=== PATIENT | female | born 1960 ===

== ENCOUNTER 2017-02-06 18:20 | Emergency (ER) | payer OTHER ==
[2017-02-06 18:25] VITALS: BMI 26.9
[2017-02-06] MEDS ORDERED: Tetanus/Diphtheria Toxoids 0.5 ml Syringe IM ONE ×2 (19:08→19:19)
[2017-02-06] MEDS ORDERED: Silver Sulfadiazine 1% Cream (20 gm) TOP STA (19:08)
[2017-02-06] MEDS ORDERED: Silver Sulfadiazine 1% Cream (20 gm) ONE (19:10)
--- NOTE | 2017-02-06 19:10 | C.PDOC ---
History Of Present Illness 56 yo female come in for evaluation of left hand thermal burn sustained hours [employer], while at work. Pt reports, " was carrying hot soup and accidentally spilled on my hand". Pt admits, irrigate with cold water and put some Aloe cream OTC. Otherwise, pt denies weakness, deformity, sensory or vascular deficits to Left hand, denies any other active complaints related to injury. Ambulate to Ed for evaluation, appears in some pain. Time Seen by Provider: 02/06/17 18:50 Chief Complaint (Nursing): Burn History Per: Patient Past Medical History Reviewed: Historical Data, Nursing Documentation, Vital Signs Vital Signs: Last Vital Signs Temp 98.6 F 02/06/17 18:28 Pulse 82 02/06/17 18:28 Resp 18 02/06/17 18:28 BP 145/89 02/06/17 18:28 Pulse Ox 100 02/06/17 18:28 - Medical History PMH: Bipolar Disorder, HTN, Hyperthyroidism, Hypothyroidism Denies: Chronic Kidney Disease Surgical History: Cholecystectomy (2000) - [facility] Procedures INDIVID PSYCHOTHERAP NEC (11/13/14) OTHER GROUP THERAPY (11/13/14) UNILAT THYROID LOBECTOMY (05/16/15) Family History: States: No Known Family Hx - Social History Hx Alcohol Use: No Hx Substance Use: No - Immunization History Hx Tetanus Toxoid Vaccination: No Hx Influenza Vaccination: Yes Hx Pneumococcal Vaccination: No Review Of Systems Except As Marked, All Systems Reviewed And Found Negative. Constitutional: Negative for: Fever, Chills Eyes: Negative for: Vision Change ENT: Negative for: Throat Pain Cardiovascular: Negative for: Chest Pain Respiratory: Negative for: Cough Gastrointestinal: Negative for: Nausea, Vomiting, Abdominal Pain Musculoskeletal: Negative for: Neck Pain, Back Pain Skin: Positive for: Other (burn) Neurological: Negative for: Weakness, Numbness Physical Exam - Physical Exam Appears: Well, Non-toxic, No Acute Distress Skin: Normal Color, Warm, Other (diffuse erythema over Left thenar area palmar and dorsal aspect with one small vesicle. No edema. No proximal streaking.) Extremity: Normal ROM, Capillary Refill (less than 2sec to Left hand), No Deformity Neurological/Psych: Oriented x3, Normal Speech, Normal Motor, Normal Sensation, Normal Reflexes ED Course And Treatment O2 Sat by Pulse Oximetry: 100 Pulse Ox Interpretation: Normal Progress Note: Burn cleaned, covered with Silvadine, analgesics, tetanus given. Pt advised on wound care. Pt has clinical findings c/w superficial burn to Left hand. Pt ref. to F/u with Burn Center at [facility] in 1-2 days for re- eavl. return if any worsening or new chanegs. Disposition Counseled Patient/Family Regarding: Diagnosis, Need For Followup, Rx Given - Disposition Referrals: [facility] [Outside] Disposition: HOME/ ROUTINE Disposition Time: 19:17 Condition: STABLE Additional Instructions: Follow up with Burn Center at [facility] Burn for further evaluation and treatment. take medication as prescribed return to ED if any worsening or new changes Prescriptions: Silver Sulfadiazine 1% [Silver Sulfadiazine] 1 appl TP BID #1 jar traMADol [Ultram] 50 mg PO TID #10 tab Instructions: Superficial Burn (ED) - Clinical Impression Clinical Impression: Superficial burn
[2017-02-06 19:26] VITALS: BP 147/93; PULSE 80; RESP 20; TEMP 98.2
[2017-02-06 19:28] VITALS: O2SAT 100
== END 2017-02-06 19:43 | disposition home or self-care (01) ==
LOC: C.ER 18:20
DX: T23.102A Burn of first degree of left hand, unspecified site, initial encounter (principal); X12.XXXA Contact with other hot fluids, initial encounter; Y93.89 Activity, other specified; Y92.89 Other specified places as the place of occurrence of the external cause; Y99.8 Other external cause status; Z23 Encounter for immunization